=== PATIENT | female | born 1970 | race Caucasian/White ===

== ENCOUNTER 2017-11-29 16:49 | Emergency (ER) | payer OTHER ==
--- NOTE | 2017-11-29 17:35 | UC ---
Back Pain HPI - HPI Summary HPI Summary: One to 2 week history of low back pain after she slipped on the ice without a fall. Has increasing pain, not responding to ibuprofen 800mg several times per day. 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 Has increased pain with coughing or sneezing, no urinary or fecal incontinence, left foot feels numb, no leg weakness. Currrently doing PT for upper back and shoulder injury. - History of Current Complaint Chief Complaint: UCBackPain Stated Complaint: LOWER BACK PAIN, LEFT LEG NUMB Time Seen by Provider: 11/29/17 17:25 Hx Obtained From: Patient Onset/Duration: Gradual Onset, Lasting Weeks - 1-2 Timing: Constant Severity Initially: Moderate Severity Currently: Moderate Pain Intensity: 3 Back Pain: Is Diffuse Character: Aching - Allergies/Home Medications Allergies/Adverse Reactions: Allergies Allergy/AdvReac Type Severity Reaction Status Date / Time No Known Allergies Allergy Verified 11/29/17 17:02 Home Medications: Home Medications Citalopram TAB* [CeleXA TAB*] 10 mg PO DAILY 11/29/17 [History Confirmed ] Ibuprofen TAB* [Motrin TAB* 800 MG] 800 mg PO ONCE 11/29/17 [History Confirmed 11/29/17] Levothyroxine TAB* [Synthroid TAB*] 100 mcg PO DAILY 11/29/17 [History Confirmed 11/29/17] PMH/Surg Hx/FS Hx/Imm Hx Endocrine History: Hypothyroidism - Surgical History Surgical History: None - Family History Known Family History: Positive: Hypertension - Social History Occupation: Employed Full-time Alcohol Use: None Substance Use Type: None Smoking Status (MU): Heavy Every Day Tobacco Smoker Type: Cigarettes Amount Used/How Often: 1/2 ppd Review of Systems Constitutional: Fatigue - weight has increased., Other - has had labs to assess her level of fatigue, no cause found. ENT: Sore Throat - x 3 weeks, with a spot on the right tonsil Musculoskeletal: Arthralgia, Decreased ROM Neurological: Headache - off and on Psychological: Depressed - has an additional med for depression. Mood has improved with additional med Is Patient Immunocompromised?: No All Other Systems Reviewed And Are Negative: Yes Physical Exam Triage Information Reviewed: Yes Appearance: Pain Distress - mild, Obese Vital Signs: Initial Vital Signs Temp 98.4 F 11/29/17 16:57 Pulse 68 11/29/17 16:57 Resp 18 11/29/17 16:57 BP 140/82 11/29/17 16:57 Pulse Ox 100 11/29/17 16:57 Vital Signs Reviewed: Yes Eyes: Positive: Conjunctiva Clear ENT: Positive: Tonsillar swelling - right tonsil swollen with small stone in the superior margin, about 5 mm. Neck exam: Normal Neck: Positive: Supple, Nontender, No Lymphadenopathy Respiratory: Positive: Lungs clear, Normal breath sounds Cardiovascular: Positive: RRR, No Murmur Abdomen Description: Positive: Nontender, No Organomegaly Musculoskeletal: Positive: Strength Intact, ROM Limited @ - FF of lumbar spine to 60 degrees, extension to 0, pain with all movement including lateral bending to the right., Other: - SLR to 80 degrees, limited by tight hamstrings. Neurological: Positive: Alert, Muscle Tone Normal - Able to heel and toe walk, Other: - DTR's brisk, Psychological Exam: Other - mildly depressed mood and affect Skin Exam: Normal Diagnostics - Laboratory Diagnostic Studies Completed/Ordered: rapid strep neg. Xrays of lumbar spine neg per radiologist. I read as mild degenerative change with some flattening of the lordotic curve. Back Pain Course/Dx - Course Course Of Treatment: PT, flexeril for back. Advised using too much ibu, change to meloxicam. Discussed tonsillar stone and how to approach with gargling, tools. - Differential Dx/Diagnosis Provider Diagnoses: low back strain. Discharge - Discharge Plan Condition: Stable Disposition: HOME Prescriptions: Cyclobenzaprine TAB* [Flexeril 10 MG TAB*] 10 mg PO DAILY PRN #30 tab PRN Reason: Spasms - Back Meloxicam 7.5 mg PO BID PRN #60 tab PRN Reason: Pain Patient Education Materials: Low Back Strain (ED) Forms: *Work Release Referrals: Tim Haskins MD [Primary Care Provider] - Additional Instructions: You have a referral to PT for your back STOP ibuprofen and use meloxicam for back pain. Continue heat, use flexeril as a muscle relaxant at night to help with spasm. Follow up with your primary doctor in 1 to 2 weeks to reassess.
[2017-11-29 19:31] VITALS: BP 124/75
--- NOTE | 2017-11-29 19:41 | RAD ---
Indication: Numbness in the left foot. 5 views of lumbar spine demonstrates vertebral bodies to be normal in height. Disc spaces are well preserved. Pedicles appear intact. IMPRESSION: Unremarkable lumbar spine.
== END 2017-11-29 19:47 | disposition home or self-care (01) ==
LOC: UCCORT 16:49
DX: S39.012A Strain of muscle, fascia and tendon of lower back, initial encounter (principal); W18.49XA Other slipping, tripping and stumbling without falling, initial encounter; Y93.01 Activity, walking, marching and hiking; Y92.9 Unspecified place or not applicable; E03.9 Hypothyroidism, unspecified; F17.210 Nicotine dependence, cigarettes, uncomplicated
CPT/HCPCS: 72110; 87651; 99212; G0463

== ENCOUNTER 2019-04-30 18:06 | Emergency (ER) | payer OTHER ==
--- NOTE | 2019-04-30 19:28 | ED ---
Headache - HPI Summary HPI Summary: A 49 y/o female presents to [facility] with a chief complaint of a headache. She says that it feels like a brain freeze. Reportedly at 14:30 today her hands and face were numb and the patient was confused. She also had some confusion with keys at 12:30 today. She says that she had some dizziness before 12:30. She reports eating today. She denies any pain but reports some chills and says that she could not get enough air when breathing but was not SOB. No new swelling in her legs, or nausea or vomiting. The patient's speech reportedly has gotten better but is not back to baseline. She says that her medications for depression aren't working. 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 Onset/Duration: Sudden Onset, Started hours ago, Still Present Initially Headache Was: Initial Pain Scale(0-10)=, Moderate Currently Pain Is: Current Pain Scale(0-10)= - 4, Moderate Timing: Constant Character: Unable To Describe - like a brainfreeze Location of Headache: Diffuse Aggravating Factor: Nothing Allevating Factors: Nothing Associated Signs And Symptoms: Other (Noted In Comments) - confusion, speech impairment, numbness in face and hands - Allergies/Home Medications Allergies/Adverse Reactions: Allergies Allergy/AdvReac Type Severity Reaction Status Date / Time ibuprofen Allergy See Comment Verified 04/30/19 18:11 Home Medications: Home Medications ARIPiprazole [Aripiprazole] 1 tab PO DAILY 04/30/19 [History Confirmed 04/30/19] BuPROPion XL* 300 mg PO DAILY 04/30/19 [History Confirmed 04/30/19] DULoxetine DR CAP* 60 mg .ROUTE DAILY 04/30/19 [History Confirmed 04/30/19] Levothyroxine TAB* 125 mcg PO DAILY 04/30/19 [History Confirmed 04/30/19] [place] Carbonate [[place] Carbonate 300 mg cap] 1 tab PO BID 04/30/19 [History Confirmed 04/30/19] PMH/Surg Hx/FS Hx/Imm Hx Sensory History: Denies: Hx Deafness EENT History: Denies: Hx Deafness Psychiatric History: Reports: Hx Depression Infectious Disease History: No Infectious Disease History: Denies: Traveled Outside the [place] in Last 30 Days - Family History Known Family History: Positive: Hypertension - Social History Alcohol Use: None Substance Use Type: Reports: None Smoking Status (MU): Heavy Every Day Tobacco Smoker Type: Cigarettes Amount Used/How Often: 1/2 ppd Review of Systems Positive: Chills. Negative: Fever Negative: Chest Pain Positive: Other - "can not get enough air" Negative: Vomiting, Nausea Negative: hematuria Negative: Edema Neurological: Other - positive: dizziness, speech impairment Positive: Headache All Other Systems Reviewed And Are Negative: Yes Physical Exam - Summary Physical Exam Summary: Constitutional: Well-developed, Well-nourished, Alert. (-) Distressed Skin: Warm, Dry HENT: Normocephalic; Atraumatic Eyes: Conjunctiva normal Neck: Musculoskeletal ROM normal neck. (-) JVD, (-) Stridor, (-) Tracheal deviation Cardio: Rhythm regular, rate normal, Heart sounds normal; Intact distal pulses; The pedal pulses are 2+ and symmetric. Radial pulses are 2+ and symmetric. (-) Murmur Pulmonary/Chest wall: Effort normal. (-) Respiratory distress, (-) Wheezes, (-) Rales Abd: Soft, (-) tenderness, (-) Distension, (-) Guarding, (-) Rebound Musculoskeletal: (-) Edema Lymph: (-) Cervical adenopathy Neuro: Alert, Oriented x3 Psych: Mood and affect Normal Triage Information Reviewed: Yes Vital Signs On Initial Exam: Initial Vitals Temp Pulse Resp BP Pulse Ox 98.8 F 81 16 147/94 98 04/30/19 18:08 04/30/19 18:08 04/30/19 18:08 04/30/19 18:08 04/30/19 18:08 Vital Signs Reviewed: Yes - [place] Coma Scale Best Eye Response: 4 - Spontaneous Best Motor Response: 6 - Obeys Commands Best Verbal Response: 5 - Oriented Coma Scale Total: 15 Diagnostics - Vital Signs Vital Signs Temp Pulse Resp BP Pulse Ox 04/30/19 18:08 98.8 F 81 16 147/94 98 - Laboratory Result Diagrams: 04/30/19 22:08 04/30/19 22:08 Lab Statement: Any lab studies that have been ordered have been reviewed, and results considered in the medical decision making process. - CT Brain CT Interpretation Completed By: Radiologist Summary of CT Findings: No acute intracranial abnormality. ED physician has reviewed this imaging report. - EKG 20:07 Cardiac Rate: NL - 71 bpm EKG Rhythm: Sinus Rhythm Summary of EKG Findings: Normal sinus rhythm at 71 bpm, normal TN, normal QRS, normal QTc, normal axis, normal ST, normal T-waves, normal EKG. Re-Evaluation - Re-Evaluation First Eval Re-Evaluation Time: 22:56 Change: Unchanged Second Eval Re-Evaluation Time: 00:12 Change: Improved Comment: She feels good Headache Course/Dx - Course Course Of Treatment: A 49 y/o female presents to [facility] with a chief complaint of a headache. 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 The physical exam was unremarkable. EKG at 20:07 reveals Normal sinus rhythm at 71 bpm, normal TN, normal QRS, normal QTc, normal axis, normal ST, normal T-waves, normal EKG. Brain CT impression: No acute intracranial abnormality. In the ED course the patient was given Benadryl IV, Toradol IV and Zofran IV. Blood work, chemistries , urines and toxicology obtained and are WNL. The patient will be discharged and follow up with her PCP. The patient is agreeable with this plan. - Diagnoses Provider Diagnoses: Atypical migraine Discharge - Sign-Out/Discharge Documenting (check all that apply): Patient Departure - DC Patient Received Moderate/Deep Sedation with Procedure: No - Discharge Plan Condition: Stable Disposition: HOME Patient Education Materials: Migraine Headache (ED) Print Language: LUX[place]BOURG[place] Forms: *Work Release Referrals: Kam Candelaria MD [Primary Care Provider] - - Billing Disposition and Condition Condition: STABLE Disposition: Home - Attestation Statements Document Initiated by Scribe: Yes Documenting Scribe: Eligio Henley Provider For Whom Shelli is Documenting (Include Credential): Bailee Hansen MD Scribe Attestation: Eligio Pimentel, scribed for Bailee Sanches MD on 05/01/19 at 0645. Scribe Documentation Reviewed: Yes Provider Attestation: The documentation as recorded by the Eligio curran accurately reflects the service I personally performed and the decisions made by me, Bailee Sanches MD Status of Scribe Document: Viewed
[2019-04-30 22:15] LABS: ABS Basophils 0.1 10^3/ul (0-0.2); ABS Eosinophils 0.2 10^3/ul (0-0.6); ABS Lymphocytes 1.9 10^3/ul (1.0-4.8); ABS Monocytes 0.6 10^3/ul (0-0.8); Eosinophil % 3.1 %; Hematocrit 40 % (35-47); Lymphocyte % 23.7 %; Mean Corpuscular HGB Conc 35 g/dL (31-36); Mean Corpuscular Hemoglobin 32 pg (27-31); Mean Corpuscular Volume 92 fL (80-97); Mean Platelet Volume 8.3 fL (7.4-10.4); Nucleated Red Blood Cells % 0.1; Platelet Count 252 10^3/uL (150-450); Red Cell Distribution Width 13 % (10-15); White Blood Count 7.8 10^3/uL (3.5-10.8)
[2019-04-30 22:30] LABS: INR 0.97 (0.82-1.09)
[2019-04-30 22:34] LABS: Albumin 3.9 g/dL (3.2-5.2); Albumin/Globulin Ratio 1.3 (1-3); BUN/Creatinine Ratio 10.2 (8-20); Calcium 9.2 mg/dL (8.6-10.3); EGFR African American 82.6 (>60); EGFR Non-African American 68.3 (>60); Globulin 2.9 g/dL (2-4); Potassium 3.9 mmol/L (3.5-5.0); Total Bilirubin 0.3 mg/dL (0.2-1.0); Total Protein 6.8 g/dL (6.4-8.9)
[2019-04-30 22:48] LABS: Lithium 0.19 mmol/L (0.6-1.2)
[2019-04-30] MEDS ORDERED: Ketorolac INJ* 30 MG/ML 1 ML VIAL IV PUSH ONE (22:54)
[2019-04-30] MEDS ORDERED: diPHENhydraMINE IV* 50 MG/ML 1 ml VIAL (BENADRYL) IV ONE (22:54)
[2019-04-30] MEDS ORDERED: Ondansetron INJ* 2 MG/ML VIAL IV ONE (22:54)
[2019-04-30 23:02] LABS: TSH (Thyroid Stimulating Horm) 15.17 mcIU/mL (0.34-5.60)
[2019-05-01 00:43] VITALS: BP 119/75
== END 2019-05-01 00:42 | disposition home or self-care (01) ==
LOC: ED 18:06
DX: G43.909 Migraine, unspecified, not intractable, without status migrainosus (principal); F32.9 Major depressive disorder, single episode, unspecified; F17.210 Nicotine dependence, cigarettes, uncomplicated; Z88.8 Allergy status to other drugs, medicaments and biological substances; Z79.899 Other long term (current) drug therapy
CPT/HCPCS: 36415; 70450; 80053; 80178; 83605; 84443; 84484; 85025; 85610; 93005; 96374; 96375; 99283; J1200; J1885; J2405

== ENCOUNTER 2019-11-15 14:50 | Emergency (ER) | payer OTHER ==
--- OUTSIDE RECORDS SUMMARY | 2019-11-15 14:56 | XMS REPORT | Continuity of Care Document ---
:1970 Author Organization [facility] Allergies and Intolerances No Allergy Data in the System Medications No Known Medications Medications At Time Of Discharge No data in the system Problems No Data in the system Procedures No data in the system Results Microbiology Results w Susceptibilities Order: CULTURE GROUP A STREP Specimen Source: Swab Body Site: Entire throat (surface region of neck )Cultural Observations:Streptococcus pyogenes (Group A) was NOT [id number] Lab Footnotes:[facility] - [id number] - [address] [place] [address] MACARENA Fontanez [id number] Social History Code Code System Social History Description Dates Observed Observation [id number] SNOMED CT Current Smoking Unknown if ever Status smoked UNK AdministrativeGender Sex Assigned At Unknown Vital Signs No data in the system Goals Section No data in the system Health Concerns No data in the systemEncounter Diagnosis Date Code Code System Diagnosis Status J02.0 ICD10 STREPTOCOCCAL PHARYNGITIS Active Advance Directives No Data in the System Encounters Encounter Diagnosis Location Date STREPTOCOCCAL PHARYNGITIS [facility] 09/29/2019 Family History Family history not obtained Functional Status No data in the system Immunizations No data in the system Medical Equipment No data in the system Mental Status No data in the system Assessment and Plan Assessments No data in the systemPlan Of Treatment No data in the systemPending Tests No data in the system Hospital Discharge Instructions No data in the system Reason for Visit No data in the system
[2019-11-15 15:38] VITALS: BP 111/66
--- NOTE | 2019-11-15 16:02 | UC ---
Back Pain HPI - HPI Summary HPI Summary: C/O 2 weeks of pain radiating down both legs into the feet. No weakness. - History of Current Complaint Chief Complaint: UCBackPain Stated Complaint: BACK PAIN Time Seen by Provider: 11/15/19 15:48 Hx Obtained From: Patient ?: No Onset/Duration: Sudden Onset, Lasting Weeks - 2, Still Present Timing: Constant Severity Initially: Moderate Severity Currently: Moderate Pain Intensity: 3 Back Pain: Is Discrete @ - back of the legs, Radiates To - the feet Character: Sharp, Burning Associated Signs And Symptoms: Positive: Negative - Risk Factors AAA Risk Factors: Smoking - Allergies/Home Medications Allergies/Adverse Reactions: Allergies Allergy/AdvReac Type Severity Reaction Status Date / Time ibuprofen Allergy See Comment Verified 07/02/19 08:22 Home Medications: Home Medications [place] Carbonate [[place] Carbonate 300 mg cap] 1 tab PO DAILY 04/30/19 [ History Confirmed 11/15/19] Gabapentin CAP(*) [Neurontin 300 CAP(*)] 300 mg PO TID #30 cap 11/15/19 [Rx] Levothyroxine TAB* [Synthroid 125 MCG TAB*] 125 mcg PO DAILY 11/15/19 [History Confirmed 11/15/19] predniSONE 20 mg TAB [Deltasone 20 MG TAB*] 60 mg PO DAILY #18 tab 11/15/19 [Rx] PMH/Surg Hx/FS Hx/Imm Hx Endocrine History: Hypothyroidism Psychological History: Depression - Surgical History Surgical History: None - Family History Known Family History: Positive: Hypertension - Social History Occupation: Employed Full-time Lives: With Family Alcohol Use: None Substance Use Type: None Smoking Status (MU): Heavy Every Day Tobacco Smoker Type: Cigarettes Amount Used/How Often: 1/2 ppd Review of Systems All Other Systems Reviewed And Are Negative: Yes Neurological/Mental Status: Positive: Paresthesia Physical Exam Triage Information Reviewed: Yes Appearance: Well-Appearing, Pain Distress - mild, Obese Vital Signs: Initial Vital Signs Temp 99.3 F 11/15/19 15:34 Pulse 79 11/15/19 15:34 Resp 16 11/15/19 15:34 BP 111/66 11/15/19 15:34 Pulse Ox 100 11/15/19 15:34 Vital Signs Reviewed: Yes Eyes: Positive: Conjunctiva Clear Neck exam: Normal Respiratory Exam: Normal Cardiovascular Exam: Normal Musculoskeletal: Positive: ROM Limited @ - lumbar spine flexion/ extension Neurological: Positive: Other: - increased pain to pinprick in the L5S1 dermatome. Psychological Exam: Normal Skin Exam: Normal Diagnostics - Radiology No standard instances Radiology Interpretation Completed By: Radiologist Summary of Radiographic Findings: DDD, no acute changes Back Pain Course/Dx - Differential Dx/Diagnosis Differential Diagnosis/HQI/PQRI: Arthritis, Herniated Disc, Strain, Sprain Provider Diagnosis: Lumbar radiculitis Discharge ED - Sign-Out/Discharge Documenting (check all that apply): Patient Departure All imaging exams completed and their final reports reviewed: Yes - Discharge Plan Condition: Stable Disposition: HOME Prescriptions: Gabapentin CAP(*) [Neurontin 300 CAP(*)] 300 mg PO TID #30 cap predniSONE 20 mg TAB [Deltasone 20 MG TAB*] 60 mg PO DAILY #18 tab Patient Education Materials: Lumbar Disc Herniation (ED) Referrals: Kam Candelaria MD [Primary Care Provider] - 3 Days (recheck the symptoms.) Additional Instructions: GABAPENTIN: Gabapentin is an anti-seizure medication that is more often used for nerve pain. It helps to stabilize the nerve to stop the pain. Its primary side effect is sedation which will improve over time. Most people will start with only one capsule 1 to 2 hours before bed, but if your pain is more severe you may want to start with one capsule twice a day. If the pain is still an issue after another 1-2days the dose may be increased to a maximum of 1 capsule 3 times a day. Decrease the dose by one capsule a day if there is excessive sedation or it is not working. You can also decrease it to discontinue it if the pain is resolving. - Billing Disposition and Condition Condition: STABLE Disposition: Home
== END 2019-11-15 16:46 | disposition home or self-care (01) ==
LOC: UCCORT 14:50
DX: M54.16 Radiculopathy, lumbar region (principal); M79.605 Pain in left leg; M79.604 Pain in right leg; E03.9 Hypothyroidism, unspecified; R20.2 Paresthesia of skin; F17.210 Nicotine dependence, cigarettes, uncomplicated; Z79.890 Hormone replacement therapy; Z88.6 Allergy status to analgesic agent
CPT/HCPCS: 72110; 99212; G0463; J7512

== ENCOUNTER 2019-11-30 12:08 | Emergency (ER) | payer OTHER ==
[2019-11-30 14:09] VITALS: BP 115/83
--- NOTE | 2019-11-30 14:13 | UC ---
General HPI - HPI Summary HPI Summary: c/o head congestion that started 1 week ago. 2- hands and knees pain that started 2 days ago, with swelling yesterday. Denies any injury. - History of Current Complaint Chief Complaint: UCGeneralIllness Stated Complaint: KNEE PAIN & SWOLLEN HANDS (NO INJ) Time Seen by Provider: 11/30/19 14:11 Hx Obtained From: Patient Onset/Duration: Sudden Onset, Lasting Days Timing: Constant Onset Severity: Moderate Current Severity: Moderate Pain Intensity: 5 Associated Signs & Symptoms: Positive: Cough, Other - joint swelling - Allergy/Home Medications Allergies/Adverse Reactions: Allergies Allergy/AdvReac Type Severity Reaction Status Date / Time ibuprofen Allergy See Comment Verified 11/30/19 14:03 Home Medications: Home Medications [place] Carbonate [[place] Carbonate 300 mg cap] 1 tab PO DAILY 04/30/19 [ History Confirmed 11/30/19] Gabapentin CAP(*) [Neurontin 300 CAP(*)] 300 mg PO TID #30 cap 11/15/19 [Rx Confirmed 11/30/19] Levothyroxine TAB* [Synthroid 125 MCG TAB*] 125 mcg PO DAILY 11/15/19 [History Confirmed 11/30/19] Albuterol HFA INHALER* [Ventolin HFA Inhaler*] 2 puff INH Q4H PRN #1 mdi [Rx] predniSONE 20 mg TAB [Deltasone 20 MG TAB*] 20 mg PO DAILY #18 tab 11/30/19 [Rx] PMH/Surg Hx/FS Hx/Imm Hx Previously Healthy: Yes - Surgical History Surgical History: None - Family History Known Family History: Positive: Hypertension - Social History Alcohol Use: None Substance Use Type: None Smoking Status (MU): Heavy Every Day Tobacco Smoker Type: Cigarettes Amount Used/How Often: 1/2 ppd Review of Systems All Other Systems Reviewed And Are Negative: Yes Respiratory: Positive: Shortness Of Breath, Cough Musculoskeletal: Positive: Arthralgia, Edema Is Patient Immunocompromised?: No Physical Exam Triage Information Reviewed: Yes Appearance: Pain Distress Vital Signs: Initial Vital Signs Temp 98.3 F 11/30/19 14:04 Pulse 73 11/30/19 14:04 Resp 18 11/30/19 14:04 BP 115/83 11/30/19 14:04 Pulse Ox 97 03/08/20 14:04 Vital Signs Reviewed: Yes ENT: Positive: Pharynx normal, TM bulging - left Dental Exam: Normal Neck exam: Normal Respiratory: Positive: Chest non-tender, No respiratory distress, No accessory muscle use, Wheezing - throughout Cardiovascular Exam: Normal Abdominal Exam: Normal Bowel Sounds: Positive: Present Musculoskeletal: Positive: Edema @ - mild swelling of knees, and hands Neurological Exam: Normal Psychological Exam: Normal Skin Exam: Normal Course/Dx - Course Course Of Treatment: hx obtained, exam performed, meds reviewd, chest xray negative. hx of RA but was discharged from her [facility] [employer] [facility] due to no show appointments. treated with prednisone and given name of [facility] pul[employer] feeder to contact. - Diagnoses Provider Diagnosis: Joint pain, Cough Discharge ED - Sign-Out/Discharge Documenting (check all that apply): Patient Departure All imaging exams completed and their final reports reviewed: Yes - Discharge Plan Condition: Stable Disposition: HOME Prescriptions: Albuterol HFA INHALER* [Ventolin HFA Inhaler*] 2 puff INH Q4H PRN #1 mdi PRN Reason: Cough predniSONE 20 mg TAB [Deltasone 20 MG TAB*] 20 mg PO DAILY #18 tab Patient Education Materials: Arthralgia (ED) Referrals: Kam Candelaria MD [Primary Care Provider] - Olivier Mckeon MD [Medical Doctor] - Additional Instructions: 1. take the medication as prescribed. 2. Follow up with Rheumatology for more consistant care of your Rhematoid arthritis - Billing Disposition and Condition Condition: STABLE Disposition: Home
== END 2019-11-30 15:04 | disposition home or self-care (01) ==
LOC: UCCORT 12:08
DX: M25.561 Pain in right knee (principal); M25.562 Pain in left knee; R60.0 Localized edema; R05 Cough; F17.210 Nicotine dependence, cigarettes, uncomplicated; Z88.6 Allergy status to analgesic agent
CPT/HCPCS: 71046; 99212; G0463